=== PATIENT | female | born 1945 | race Caucasian/White ===

== ENCOUNTER → 2023-12-02 08:31 | Outpatient (REF) | payer MEDICARE, OTHER, SELFPAY ==
[2023-12-02 09:12] LABS: % Basophils 0.6 % (0-2); % Immature Granulocytes 0.2 % (0-0.5); % Lymphocytes 33.1 % (20.5-51.1); % Monocytes 8.1 % (1.7-9.3); Absolute Eosinophils 0.2 10^3/uL (0-0.7); Absolute Lymphocytes 1.7 10^3/uL (1.2-3.4); Absolute Monocytes 0.4 10^3/uL (0.1-0.6); Absolute Neutrophils 2.7 10^3/uL (1.4-6.5); Hemoglobin 13.3 g/dL (12.0-16.0); Mean Corp Hgb Conc. 34.1 g/dL (33.0-37.0); Mean Platelet Volume 11.2 fL (7.4-10.4); Nucleated Red Blood Cells % 0 %; Platelet Count 169 10^3/uL (130-400); Red Blood Cell Count 4.43 10^6/uL (4.20-5.40); Red Cell Dist. Width 12.8 % (11.5-14.5)
[2023-12-02 09:45] LABS: ALT (SGPT) 17 U/L (0-35); AST (SGOT) 27 U/L (14-36); Alkaline Phosphatase 113 U/L (38-126); Blood Urea Nitrogen 21 mg/dl (7-17); Calcium 9.2 mg/dl (8.4-10.2); Carbon Dioxide 27 mmol/L (22-30); Chloride 107 mmol/L (98-107); Glucose 81 mg/dl (70-99); HDL Cholesterol 86 mg/dl; LDL Cholesterol, Calculated 106 mg/dl; Potassium 4.3 mmol/L (3.5-5.1); Sodium 138 mmol/L (135-145); Total Bilirubin 1.2 mg/dl (0.2-1.3); Total Cholesterol 210 mg/dl (50-199); Total Protein 6.4 g/dl (6.3-8.2); Triglyceride 92 mg/dl (10-149); Very Low Density Lipoprotein 18 mg/dl (0-30); eGFR 51.75
[2023-12-02 13:35] LABS: Glycohemoglobin (HgbA1c) 5.4 % (4.0-5.6)
== END ==
LOC: REG 08:31
PROVIDERS: ATTENDING PHYSICIAN Family Medicine
DX: Z00.00 Encounter for general adult medical examination without abnormal findings (principal); E78.2 Mixed hyperlipidemia; R73.02 Impaired glucose tolerance (oral); G47.33 Obstructive sleep apnea (adult) (pediatric); M79.18 Myalgia, other site
CPT/HCPCS: 36415; 80053; 80061; 83036; 85025

== ENCOUNTER → 2024-01-17 12:34 | Outpatient (REF) | payer MEDICARE, OTHER, SELFPAY | LOC: RAD 12:34 | PROVIDERS: ATTENDING PHYSICIAN Internal Medicine Hematology & Oncology; FAMILY PHYSICIAN Family Medicine | DX: C34.11 Malignant neoplasm of upper lobe, right bronchus or lung (principal); C50.911 Malignant neoplasm of unspecified site of right female breast; D13.6 Benign neoplasm of pancreas | CPT/HCPCS: 71250 ==

== ENCOUNTER → 2024-03-31 13:41 | Outpatient (REF) | payer MEDICARE, OTHER, SELFPAY | LOC: RAD 13:41 | PROVIDERS: ATTENDING PHYSICIAN Internal Medicine Gastroenterology; FAMILY PHYSICIAN Family Medicine | DX: R10.30 Lower abdominal pain, unspecified (principal) | CPT/HCPCS: 74018 ==

== ENCOUNTER → 2024-05-03 09:05 | Outpatient (REF) | payer MEDICARE, OTHER, SELFPAY | LOC: WDC 09:05 | PROVIDERS: ATTENDING PHYSICIAN Surgery; FAMILY PHYSICIAN Family Medicine; REFERRING PHYSICIAN Internal Medicine Hematology & Oncology | DX: R92.2 Inconclusive mammogram (principal) | CPT/HCPCS: 76641 ==

== ENCOUNTER → 2024-06-04 09:05 | Outpatient (REF) | payer MEDICARE, OTHER, SELFPAY | LOC: MRI 09:05 | PROVIDERS: ATTENDING PHYSICIAN Orthopaedic Surgery | DX: M25.559 Pain in unspecified hip (principal) | CPT/HCPCS: 73721 ==

== ENCOUNTER 2024-06-20 11:19 | Emergency (ER) | payer MEDICARE, OTHER, SELFPAY ==
[2024-06-20 11:27] VITALS: BP 144/77
[2024-06-20 11:56] LABS: % Basophils 0.3 % (0-2); % Eosinophils 1.2 % (0-6); % Immature Granulocytes 0.3 % (0-0.5); % Lymphocytes 18.5 % (20.5-51.1); % Monocytes 5.8 % (1.7-9.3); % Neutrophils 73.9 % (42.2-75.2); Absolute Eosinophils 0.1 10^3/uL (0-0.7); Absolute Lymphocytes 1.4 10^3/uL (1.2-3.4); Absolute Monocytes 0.4 10^3/uL (0.1-0.6); Absolute Neutrophils 5.5 10^3/uL (1.4-6.5); Hematocrit 35.3 % (37.0-47.0); Hemoglobin 12.2 g/dL (12.0-16.0); Mean Corp Hgb Conc. 34.6 g/dL (33.0-37.0); Mean Corpuscular Hgb 29.1 pg (27.0-31.0); Mean Corpuscular Volume 84.2 fL (81.0-99.0); Mean Platelet Volume 10.1 fL (7.4-10.4); Nucleated Red Blood Cells % 0 %; Platelet Count 235 10^3/uL (130-400); Red Blood Cell Count 4.19 10^6/uL (4.20-5.40); Red Cell Dist. Width 12.5 % (11.5-14.5); White Blood Cell Count 7.4 10^3/uL (4.8-10.8)
[2024-06-20 12:33] LABS: ALT (SGPT) 17 U/L (0-35); AST (SGOT) 23 U/L (14-36); Albumin 3.8 g/dl (3.5-5.0); Alkaline Phosphatase 100 U/L (38-126); Blood Urea Nitrogen 19 mg/dl (7-17); Calcium 9.6 mg/dl (8.4-10.2); Carbon Dioxide 25 mmol/L (22-30); Chloride 107 mmol/L (98-107); Glucose 137 mg/dl (70-99); Lipase 88 U/L (23-300); Sodium 140 mmol/L (135-145); Total Bilirubin 0.9 mg/dl (0.2-1.3); Total Protein 6.1 g/dl (6.3-8.2); eGFR > 60.00
--- NOTE | 2024-06-20 12:48 | ED.GENMED ---
History of Present Illness
General
Chief Complaint: Abdominal Pain
Source: patient
Time Seen by Provider: 06/20/24 12:32
History of Present Illness
History of Present Illness:
78-year-old female presents to the emergency room complaining of abdominal pain. Patient states she has been having episodic abdominal pain for the past couple years. She will have pain for a few days and then it settles down. She has been
evaluated by her primary by gastroenterology for this. She has had an MRI as well as other testing without any etiology remained. 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 She has diverticulosis but
it is not clear she is ever had diverticulitis. Patient denies any fever, chills. She has nausea but has not vomited. She cannot really determine much that makes it better but she has noted that if she has frequent bowel movements the pain does
seem to lessen. Patient also endorses being under a lot of stress. After receiving bad news yesterday she felt as if she was dazed and was having difficulty concentrating. She had a similar episode while in the waiting.
Past History
Past History
ED Past Medical History: Cancer (Right Breast CA 2013, lumpectomy and RT), GERD, Hypercholesterolemia and Other (History of pneumonia,)
ED Past Surgical History: Orthopedic (Left knee surgery) and Other (Right breast lumpectomy, right patellar fx with ORIF)
Social History
Tobacco: Former smoker
Alcohol: Occasional
Personal:
Living: with family
Employment: Retired
Phy Exam
Physical Exam
Physical Exam:
General: Awake, Alert, Oriented X3. No acute distress.
Vitals: unremarkable
Head: Atraumatic
Eyes: Pupils equal, EOMI
Throat: Airway intact, no exudates
Neck: Trachea midline
Lungs: Clear and equal b/l
Heart: Regular rate, no murmurs
Abd: Soft, mild upper abdominal pain, no rebound no pulsatile mass
Neuro: Nonfocal
Skin: Warm, dry, no rash
Extremities: pulses equal b/l, no edema
Course
Orders/Labs/Results
Orders:
Orders
06/20/24 11:43
Complete Blood Count/With Diff Urgent
Comprehensive Metabolic Panel Urgent
Lipase Urgent
06/20/24 12:45
0.9% Sodium Chloride 500 ml [Nss] 500 ml IV BOLUS
Pantoprazole [Protonix IV] 40 mg IV NOW STA
06/20/24 12:46
CT Abd/pelvis W Iv Cont Urgent
Comment:
Reason For Exam: central abd pain
06/20/24 13:04
Urinalysis Reflex To Culture Urgent
Date Specimen was Collected: 06/20/24
Time Specimen was Collected: 13:03
Urine Microscopic Reflex Cult Urgent
Urine Culture Urgent
ROGELIO Source: U
Specimen Description:
Date Specimen was Collected: 06/20/24
Time Specimen was Collected: 13:03
Abnormal Lab Results
06/20/24 06/20/24
11:43 13:04
RBC 4.19 L 10^6/uL
(4.20-5.40)
Hct 35.3 L %
(37.0-47.0)
Lymphocytes % 18.5 L %
(20.5-51.1)
BUN 19 H mg/dl
(7-17)
Glucose 137 H mg/dl
(70-99)
Total Protein 6.1 L g/dl
(6.3-8.2)
Ur Occult Blood Reflex Trace A
(Negative)
Leukocyte Esterase Rfl Trace A
(Negative)
Urine RBC 3-6 A /HPF
(0-2)
Urine Bacteria (Reflex) Many A
(Negative)
06/20/24 11:43
06/20/24 11:43
Vital Signs
Initial and Last Documented VS:
Initial Vital Signs
Temp Pulse Resp BP Pulse Ox
97.7 F 80 18 144/77 97
06/20/24 11:27 06/20/24 11:27 06/20/24 11:27 06/20/24 11:27 06/20/24 11:27
Last Documented Vital Signs
Temp Pulse Resp BP Pulse Ox
97.7 F 67 18 166/87 98
06/20/24 11:27 06/20/24 17:44 06/20/24 17:44 06/20/24 17:44 06/20/24 15:15
MDM/Problems Addressed
Differential Diagnosis Includes:
Cholecystitis, gastritis, diverticulitis
MDM/Problems Addressed:
Patient presents with abdominal pain that has been an issue on and off for the past 2 years. Physical exam is benign. Labs are reassuring. CT abdomen pelvis redemonstrates presence of gallstones but no evidence of cholecystitis. No other
pathology noted. Patient does have a pancreatic lesion which is known and is stable. I doubt the patient's pain is related to the gallstones but there is a colicky component to it we will have the patient follow-up with general surgery.
*Radiology
Radiology exam reviewed: radiology read reviewed
*Pulse Oximetry
Patient hypoxic: no
*Critical Care Note
Total Time (30-74mins, 75-104mins- exclusive of procedures): Not Applicable
ED Attending Note
-
Portions of this chart may have been created with voice recognition software.� Occasional wrong word or��sound alike� substitutions may have occurred due to the inherent limitations of voice recognition software.
Discharge Plan
Departure
Patient Disposition: Home (Routine Discharge)
Date of Disposition: 06/20/24
Time of Disposition: 16:46
Patient with high blood pressure during this ER visit?: No
Condition: Good
Discharge Problem:
Abdominal pain
Instructions: Abdominal Pain, BLOOD PRESSURE
Prescriptions:
New
dicyclomine 20 mg tablet
20 mg PO QID PRN (Reason: abdominal pain) Qty: 20 0RF
No Action
atorvastatin 10 MG tablet
10 mg PO QPM
sertraline 100 MG tablet
50 mg PO DAILY
famotidine [Pepcid AC] 20 MG tablet
20 mg PO DAILY
zaleplon 10 MG capsule
10 mg PO HS
Calcium Citrate Tab
1,000 mg PO DAILY
melatonin 3 MG tablet
3 mg PO HS
meloxicam [Mobic] 15 MG tablet
15 mg PO Q6HPRN PRN (Reason: pain)
methylprednisolone [Medrol (Asad)] 4 mg tablets,dose pack
See Rx Instructions .ROUTE .COMPLEX Qty: 21 0RF
Rx Instructions:
orally per package directions
tizanidine 2 mg tablet
2 mg PO Q8H PRN (Reason: muscle spasticity) Qty: 20 0RF
Referrals:
Patrice Meyers MD [Active] -
Nadia Varghese MD [Active] -
Noman Mc MD [Family Provider] -
Interventions
Interventions:
*Risk Screen - Suicide Last Done: 06/20/24 13:00
*General Assessment Last Done: 06/20/24 13:00
*Neglect/Abuse Screening Last Done: 06/20/24 13:00
*Nursing Disposition Last Done: 06/20/24 17:44
NQ-Mtaxcu-Ednthzlazs Assessment Last Done: 06/20/24 13:00
Discharge Date and Time
Discharge Date/Time: 06/20/24 17:45
Print Language: SETSWANA
[2024-06-20 13:00] VITALS: BP 151/74
[2024-06-20] MEDS: NSS 500 IV (13:05)
[2024-06-20] MEDS: PROTONIX IV 40 MG IV (13:08)
[2024-06-20 13:41] LABS: Urine Albumin Negative (Neg - Trace); Urine Bilirubin Negative (Negative); Urine Character Clear (Clear); Urine Color Yellow; Urine Glucose Negative (Negative); Urine Ketone Negative (Negative); Urine Leukocyte Trace (Negative); Urine Nitrite Negative (Negative); Urine Occult Blood Trace (Negative); Urine Urobilinogen Negative (Neg - 1+)
[2024-06-20 14:37] VITALS: BP 146/54
[2024-06-20 14:51] LABS: Urine Mucus Few
[2024-06-20 14:52] LABS: Urine Amorphous Seen
[2024-06-20 14:53] LABS: Urine Bacteria Many (Negative)
[2024-06-20 15:00] VITALS: BP 136/52
[2024-06-20 17:44] VITALS: BP 166/87
== END 2024-06-20 17:45 | disposition home or self-care (01) ==
LOC: EMR 11:19
PROVIDERS: Emergency Medicine; EMERGENCY PHYSICIAN Emergency Medicine; FAMILY PHYSICIAN Family Medicine
DX: R10.9 Unspecified abdominal pain (principal); K21.9 Gastro-esophageal reflux disease without esophagitis; E78.00 Pure hypercholesterolemia, unspecified; K86.2 Cyst of pancreas; Z85.3 Personal history of malignant neoplasm of breast; Z87.891 Personal history of nicotine dependence
CPT/HCPCS: 99284; 96374; 96361; 74177; 80053; 81003; 81015; 83690; 85025; 87077; 87086; 87186; Q9967

== ENCOUNTER → 2024-08-18 10:26 | Outpatient (REF) | payer MEDICARE, OTHER, SELFPAY | LOC: RAD 10:26 | PROVIDERS: ATTENDING PHYSICIAN Urology; FAMILY PHYSICIAN Family Medicine | DX: N32.81 Overactive bladder (principal); N39.3 Stress incontinence (female) (male); M62.89 Other specified disorders of muscle | CPT/HCPCS: 76770 ==

== ENCOUNTER → 2024-08-25 08:25 | Outpatient (REF) | payer MEDICARE, OTHER, SELFPAY | LOC: WDC 08:25 | PROVIDERS: ATTENDING PHYSICIAN Surgery; FAMILY PHYSICIAN Family Medicine | DX: Z12.31 Encounter for screening mammogram for malignant neoplasm of breast (principal) | CPT/HCPCS: 77063; 77067 ==

== ENCOUNTER → 2024-09-27 19:55 | Outpatient (REF) | payer MEDICARE, OTHER, SELFPAY | LOC: PAVMRI 19:55 | PROVIDERS: ATTENDING PHYSICIAN Pain Medicine Interventional Pain Medicine; FAMILY PHYSICIAN Family Medicine | DX: M54.16 Radiculopathy, lumbar region (principal) | CPT/HCPCS: 72148 ==

== ENCOUNTER → 2024-12-12 10:08 | Outpatient (REF) | payer MEDICARE, OTHER, SELFPAY ==
[2024-12-12 11:14] LABS: Hematocrit 41.4 % (37.0-47.0); Hemoglobin 14.1 g/dL (12.0-16.0); Mean Corp Hgb Conc. 34.1 g/dL (33.0-37.0); Mean Corpuscular Hgb 29.3 pg (27.0-31.0); Mean Corpuscular Volume 85.9 fL (81.0-99.0); Platelet Count 158 10^3/uL (130-400); Red Blood Cell Count 4.82 10^6/uL (4.20-5.40); Red Cell Dist. Width 12.6 % (11.5-14.5)
[2024-12-12 11:55] LABS: ALT (SGPT) 18 U/L (0-35); AST (SGOT) 24 U/L (14-36); Albumin 4.3 g/dl (3.5-5.0); Alkaline Phosphatase 124 U/L (38-126); Blood Urea Nitrogen 18 mg/dl (7-17); Calcium 9.6 mg/dl (8.4-10.2); Carbon Dioxide 28 mmol/L (22-30); Chloride 104 mmol/L (98-107); Glucose 89 mg/dl (70-99); HDL Cholesterol 83 mg/dl; LDL Cholesterol, Calculated 135 mg/dl; Potassium 4.5 mmol/L (3.5-5.1); Sodium 138 mmol/L (135-145); Total Bilirubin 1.3 mg/dl (0.2-1.3); Total Cholesterol 244 mg/dl (50-199); Total Protein 6.8 g/dl (6.3-8.2); Triglyceride 130 mg/dl (10-149); Very Low Density Lipoprotein 26 mg/dl (0-30); eGFR 57.66
[2024-12-12 12:17] LABS: Glycohemoglobin (HgbA1c) 5.5 % (4.0-5.6)
[2024-12-12 12:21] LABS: TSH Reflex To Free T4 2.09 uIU/ml (0.47-4.68)
== END ==
LOC: REG 10:08
PROVIDERS: ATTENDING PHYSICIAN Family Medicine
DX: R79.9 Abnormal finding of blood chemistry, unspecified (principal); Z79.899 Other long term (current) drug therapy; Z01.89 Encounter for other specified special examinations
CPT/HCPCS: 36415; 80053; 80061; 83036; 84443; 85027

== ENCOUNTER → 2024-12-18 12:55 | Outpatient (REF) | payer MEDICARE, OTHER, SELFPAY | LOC: RAD 12:55 | PROVIDERS: ATTENDING PHYSICIAN Obstetrics & Gynecology Gynecology; FAMILY PHYSICIAN Family Medicine | DX: M85.89 Other specified disorders of bone density and structure, multiple sites (principal) | CPT/HCPCS: 77080 ==

== ENCOUNTER → 2024-12-25 14:23 | Outpatient (REF) | payer MEDICARE, OTHER, SELFPAY ==
[2024-12-25 16:11] LABS: Vitamin D, 25-OH*** 32.7 ng/mL (30-80)
== END ==
LOC: REG 14:23
PROVIDERS: ATTENDING PHYSICIAN Obstetrics & Gynecology Gynecology
DX: E55.9 Vitamin D deficiency, unspecified (principal)
CPT/HCPCS: 36415; 82306

== ENCOUNTER → 2025-01-15 12:37 | Outpatient (REF) | payer MEDICARE, OTHER, SELFPAY | LOC: HWRAD 12:37 | PROVIDERS: ATTENDING PHYSICIAN Internal Medicine Hematology & Oncology; FAMILY PHYSICIAN Family Medicine | DX: C34.11 Malignant neoplasm of upper lobe, right bronchus or lung (principal); C50.911 Malignant neoplasm of unspecified site of right female breast; D13.6 Benign neoplasm of pancreas | CPT/HCPCS: 71250 ==

== ENCOUNTER 2025-02-11 16:07 | Emergency (ER) | payer MEDICARE, OTHER, SELFPAY ==
[2025-02-11 16:10] VITALS: BP 155/77
--- NOTE | 2025-02-11 17:26 | ED.GENMED ---
History of Present Illness
General
Chief Complaint: Crisis Evaluation
Source: patient and other (nursing from floor)
Exam Limitations: none
Time Seen by Provider: 02/11/25 17:08
Nursing documentation reviewed up to this point in time: agreed with
History of Present Illness
History of Present Illness:
79-year-old female presents emergency department due to stating she can no longer handle her and wanted it all to go away. She denies any suicidal ideation. She was on the hospital floor with her ill , and states she is tired of
dealing with his illness and how mean he is to her. She does not want to hurt herself. She wants to go home and be with her dog. She has plans to talk with her friends.
Past History
Past History
ED Past Medical History: Cancer (Right Breast CA 2013, lumpectomy and RT), GERD, Hypercholesterolemia and Other (History of pneumonia,)
ED Past Surgical History: Orthopedic (Left knee surgery) and Other (Right breast lumpectomy, right patellar fx with ORIF)
Social History
Tobacco: Former smoker
Alcohol: Occasional
Personal:
Living: with family
Employment: Retired
Review of Systems
Review of Systems
Allergies reviewed?: Yes
All Other Systems: Not applicable
Constitutional: Reports no symptoms
EENT: Reports no symptoms
Respiratory: Reports no symptoms
Cardiac: Reports no symptoms
ABD/GI: Reports no symptoms
: Reports no symptoms
Musculoskeletal: Reports no symptoms
Skin: Reports no symptoms
Neurological: Reports no symptoms
Endocrine: Reports no symptoms
Hematologic/Lymphatic: Reports no symptoms
Psychiatric: Reports no symptoms
Phy Exam
Physical Exam
Physical Exam:
Physical Exam
General: no apparent distress, not acutely ill
Neck: supple. no meningeal signs. normal posterior pharynx
Heart: s1/s2 regular rate and rhythm, no murmur. equal radial
pulses.
HEENT: Pupils equal round reactive to light, EOMI
Lungs: no acute respiratory distress. clear bilaterally
Abdomen: normal bowel sounds. not tender. no CVAT
Neuro: alert and oriented. no focal neurological deficits cranial nerves II through XII intact
Skin: no rash
Psychiatric: well kept. interactive and cooperative
Extremities: no edema. no calf tenderness. negative homans. good distal pulses
Course
Orders/Labs/Results
Orders:
Orders
02/11/25 16:09
Crisis Consult Urgent
Reason for Consult: SI
Vital Signs
Initial and Last Documented VS:
Initial Vital Signs
Temp Pulse Resp BP Pulse Ox
98.4 F 95 18 155/77 97
02/11/25 16:10 02/11/25 16:10 02/11/25 16:10 02/11/25 16:10 02/11/25 16:10
Last Documented Vital Signs
Temp Pulse Resp BP Pulse Ox
98.4 F 95 18 155/77 97
02/11/25 16:10 02/11/25 16:10 02/11/25 16:10 02/11/25 16:10 02/11/25 16:10
MDM/Problems Addressed
Differential Diagnosis Includes:
Suicide ideation, depression
MDM/Problems Addressed:
79-year-old female with adjustment disorder, no signs of suicidal ideation. Patient stable for discharge.
*Pulse Oximetry
Patient hypoxic: no
*Critical Care Note
Total Time (30-74mins, 75-104mins- exclusive of procedures): Not Applicable
ED Attending Note
-
Portions of this chart may have been created with voice recognition software.� Occasional wrong word or��sound alike� substitutions may have occurred due to the inherent limitations of voice recognition software.
Discharge Plan
Departure
Patient Disposition: Home (Routine Discharge)
Date of Disposition: 02/11/25
Time of Disposition: 17:29
Patient with high blood pressure during this ER visit?: Yes
Condition: Good
Discharge Problem:
Adjustment disorder
Instructions: Adjustment disorder, BLOOD PRESSURE
Prescriptions:
No Action
atorvastatin 10 MG tablet
10 mg PO QPM
sertraline 100 MG tablet
50 mg PO DAILY
famotidine [Pepcid AC] 20 MG tablet
20 mg PO DAILY
zaleplon 10 MG capsule
10 mg PO HS
Calcium Citrate Tab
1,000 mg PO DAILY
melatonin 3 MG tablet
3 mg PO HS
meloxicam [Mobic] 15 MG tablet
15 mg PO Q6HPRN PRN (Reason: pain)
methylprednisolone [Medrol (Asad)] 4 mg tablets,dose pack
See Rx Instructions .ROUTE .COMPLEX Qty: 21 0RF
Rx Instructions:
orally per package directions
tizanidine 2 mg tablet
2 mg PO Q8H PRN (Reason: muscle spasticity) Qty: 20 0RF
dicyclomine 20 mg tablet
20 mg PO QID PRN (Reason: abdominal pain) Qty: 20 0RF
Activity Restrictions/Additional Instructions:
Return for any concerns.
Interventions
Interventions:
*Risk Screen - Suicide Last Done: 02/11/25 16:08
*General Assessment Last Done: 02/11/25 16:10
*Neglect/Abuse Screening Last Done: 02/11/25 16:10
*ED COVID-19 Vaccine History Last Done: 02/11/25 16:10
*Nursing Disposition Last Done: 02/11/25 17:40
ED-Psychological Assessment Last Done: 02/11/25 16:30
Discharge Date and Time
Discharge Date/Time: 02/11/25 17:42
Print Language: HUNGARIAN
== END 2025-02-11 17:42 | disposition home or self-care (01) ==
LOC: EMR 16:07
PROVIDERS: EMERGENCY PHYSICIAN Emergency Medicine; FAMILY PHYSICIAN Family Medicine
DX: F43.20 Adjustment disorder, unspecified (principal); E78.00 Pure hypercholesterolemia, unspecified; Z85.3 Personal history of malignant neoplasm of breast; Z87.891 Personal history of nicotine dependence; Z63.0 Problems in relationship with spouse or partner
CPT/HCPCS: 99283

== ENCOUNTER → 2025-02-22 09:53 | Outpatient (REF) | payer MEDICARE, OTHER, SELFPAY | LOC: WDC 09:53 | PROVIDERS: ATTENDING PHYSICIAN Surgery; FAMILY PHYSICIAN Family Medicine | DX: R92.30 Dense breasts, unspecified (principal) | CPT/HCPCS: 76641 ==

== ENCOUNTER → 2025-03-26 13:45 | Outpatient (REF) | payer MEDICARE, OTHER, SELFPAY | LOC: RCS 13:45 | PROVIDERS: ATTENDING PHYSICIAN Family Medicine | DX: R07.89 Other chest pain (principal); R00.2 Palpitations; R53.83 Other fatigue | CPT/HCPCS: 93306; Q9950 ==

== ENCOUNTER → 2025-05-21 11:14 | Outpatient (REF) | payer MEDICARE, OTHER, SELFPAY | LOC: RCS 11:14 | PROVIDERS: ATTENDING PHYSICIAN Family Medicine | DX: R07.89 Other chest pain (principal); R53.83 Other fatigue | CPT/HCPCS: 78452; 93017; A9500 ==

== ENCOUNTER → 2025-07-11 18:46 | Outpatient (REF) | payer MEDICARE, OTHER, SELFPAY | LOC: MRI 3T 18:46 | PROVIDERS: ATTENDING PHYSICIAN Orthopaedic Surgery; FAMILY PHYSICIAN Family Medicine | DX: M76.891 Other specified enthesopathies of right lower limb, excluding foot (principal) | CPT/HCPCS: 73721 ==

== ENCOUNTER → 2025-09-19 12:05 | Outpatient (REF) | payer MEDICARE, OTHER, SELFPAY | LOC: WDC 12:05 | PROVIDERS: ATTENDING PHYSICIAN Internal Medicine Hematology & Oncology; FAMILY PHYSICIAN Family Medicine | DX: Z12.31 Encounter for screening mammogram for malignant neoplasm of breast (principal) | CPT/HCPCS: 77063; 77067 ==

== ENCOUNTER → 2025-10-13 08:43 | Outpatient (REF) | payer MEDICARE, OTHER, SELFPAY ==
[2025-10-13 09:52] LABS: Hematocrit 37.9 % (37.0-47.0); Hemoglobin 12.8 g/dL (12.0-16.0); Mean Corp Hgb Conc. 33.8 g/dL (33.0-37.0); Mean Corpuscular Volume 87.7 fL (81.0-99.0); Nucleated Red Blood Cells % 0 %; Platelet Count 146 10^3/uL (130-400); Red Cell Dist. Width 12.4 % (11.5-14.5)
[2025-10-13 12:15] LABS: Glycohemoglobin (HgbA1c) 5.6 % (4.0-5.9)
[2025-10-13 13:46] LABS: ALT (SGPT) 15 U/L (0-35); AST (SGOT) 23 U/L (14-36); Albumin 3.9 g/dl (3.5-5.0); Alkaline Phosphatase 81 U/L (38-126); Blood Urea Nitrogen 21 mg/dl (7-17); Calcium 9.0 mg/dl (8.4-10.2); Carbon Dioxide 29 mmol/L (22-30); Chloride 107 mmol/L (98-107); Glucose 93 mg/dl (70-99); HDL Cholesterol 71 mg/dl; LDL Cholesterol, Calculated 100 mg/dl; Potassium 4.6 mmol/L (3.5-5.1); Sodium 138 mmol/L (135-145); Total Protein 6.3 g/dl (6.3-8.2); Very Low Density Lipoprotein 16 mg/dl (0-30); eGFR 57.31
== END ==
LOC: REG 08:43
PROVIDERS: ATTENDING PHYSICIAN Family Medicine
DX: R79.9 Abnormal finding of blood chemistry, unspecified (principal); Z79.899 Other long term (current) drug therapy; Z01.89 Encounter for other specified special examinations; R53.83 Other fatigue; R91.8 Other nonspecific abnormal finding of lung field
CPT/HCPCS: 36415; 80053; 80061; 83036; 84443; 85025